=== PATIENT | male | born 1945 | race Two or more races ===

== ENCOUNTER → 2025-01-09 | Emergency (ER) | payer OTHER ==
[~2025-01-09] VITALS: Ht 170.2 cm; Wt 68.0 kg
[~2025-01-09] MED LIST: 0.9 % SODIUM CHLORIDE 1,000 ML IV SCH; CEFTRIAXONE SODIUM 2,000 MG VIAL IV ONE; CEFTRIAXONE SODIUM 2,000 MG VIAL ONE; KETOROLAC TROMETHAMINE 30 MG VIAL IV ONE; KETOROLAC TROMETHAMINE 30 MG VIAL ONE
[2025-01-09 11:54] LABS: BASO % 0.3 % (0.1-1.2); EOS # 0.20 (0.04-0.54); EOS % 1.9 % (0.7-7.0); LYMPH # 1.70 (1.18-3.74); LYMPH % 16.4 % (19.3-53.1); MEAN PLATELET VOLUME 9.80 fl (9.4-12.4); MONO # 0.67 (0.24-0.82); MONO % 6.5 % (4.7-12.5); NEUT # 7.69 (1.56-6.13); NEUT % 74.4 % (34.0-71.1); RED CELL DISTRIBUTION WIDTH 16.0 % (11.6-14.4)
[2025-01-09 11:59] LABS: ERYTHROCYTE SEDIMENTATION RATE 8 mm/hr (0-20)
[2025-01-09 12:26] LABS: ALT/SGPT 31 U/L (12-78); AST/SGOT 19 U/L (15-37); BILIRUBIN TOTAL 0.76 mg/dL (0.3-1.2); BUN CREA RATIO 16 (7.0-25.0); CREATININE SERUM 0.93 mg/dL (0.70-1.30); GFR 78.58; GLOBULINA 3.7 G/DL (2.4-3.5); GLUCOSE FASTING 96 mg/dL (65-100); OSMOLALITY SERUM 286 MOSM/KG (275-295)
[2025-01-09 13:39] LABS: URINE APPEARANCE Clear; URINE BILIRRUBIN Negative (NEGATIVE); URINE BLOOD Negative; URINE COLOR Yellow; URINE GLUCOSE Negative (NEGATIVE); URINE KETONE Negative (NEGATIVE); URINE LEUKOCYTE Trace; URINE NITRATE Negative; URINE PROTEIN Negative (NEGATIVE); URINE UROBILINOGEN 0.2 E.U./dl
[2025-01-09 13:43] LABS: URINE BACTERIA 10.7 uL (0.0-1933); URINE EPITHELIAL CELLS 1.8 uL (0.0-38.8)
[2025-01-09 13:55] LABS: URINE CAST 0.29 uL (0.0-1.40); URINE RBC 1.6 uL (0.0-20.8); URINE WBC 1.6 uL (0.0-23.2)
== END | disposition left against medical advice (07) ==
LOC: ER 09:35
PROVIDERS: General Practice
DX: M54.59 Other low back pain (principal); I10 Essential (primary) hypertension
CPT/HCPCS: 36415; 74177; Q9965